=== PATIENT | female | born 1970 | race Two or more races ===

== ENCOUNTER → 2019-08-07 | Emergency (ER) | payer OTHER ==
[~2019-08-07] VITALS: Ht 170.2 cm; Wt 71.7 kg
[~2019-08-07] MED LIST: ALBUTEROL SULF 2.5 MG/0.5ML(0.5%) NEB SOLN NEB STA; IPRATROPIUM BROM 0.5 MG/2.5ML INH SOL NEB ONE; ONDANSETRON HCL 4 MG/2 ML VIAL ONE; cefTRIAXone 1GM/50ML D5W 50 ML IV ONE
[2019-08-07 23:25] LABS: Eosinophils # (auto) 0.3 10 ^3/uL (0-0.8); Hemoglobin 14.3 g/dL (12.2-16.2); Monocytes # (auto) 0.9 10 ^3/uL (0-1.3); Neutrophils % (auto) 70.8 % (37.0-80.0); Nucleated Red Blood Cells % 0.1 %; Red Cell Distribution Width 13.9 % (11.8-14.3); White Blood Cell 14.9 10^3/uL (4.4-10.8)
[2019-08-07 23:27] LABS: Basophils # (auto) 0.1 10 ^3/uL (0-0.2); Basophils % (auto) 0.6 % (0.0-2.0); Eosinophils % (auto) 1.9 % (0.0-7.0); Lymphocytes % (auto) 20.4 % (10.0-50.0); Mean Corpuscular Hemoglobin 25.3 pg (28.0-32.0); Mean Corpuscular Hgb Conc. 33.2 g/dL (32.0-36.0); Mean Corpuscular Volume 76.3 fL (80.0-100.0); Monocytes % (auto) 6.3 % (0.0-12.0); Neutrophils # (auto) 10.5 10 ^3/uL (1.6-8.6); Platelet Count (auto) 330 10^3/uL (140-450); Red Blood Cells 5.63 10^6/uL (4.0-5.20)
[2019-08-07 23:39] LABS: Albumin 3.7 g/dL (3.4-5.0); BUN/Creatinine Ratio 16.7; Calcium 8.9 mg/dL (8.5-10.1); Potassium 3.5 mmol/L (3.5-5.1)
[2019-08-07 23:42] LABS: Bilirubin, Total 0.4 mg/dL (0.2-1.0); Total Protein 7.7 g/dL (6.4-8.2)
[2019-08-08 02:31] LABS: Urine Bacteria MOD /hpf (None Seen); Urine Blood 2+ /uL (Negative); Urine Mucus FEW (None Seen); Urine Specific Gravity 1.027 (1.001-1.035); Urine WBC 5 /hpf (0 - 5)
[2019-08-08 03:00] VITALS: BP 120/69
== END | disposition home or self-care (01) ==
LOC: EDBD 22:13 → ER 22:17
DX: J02.0 Streptococcal pharyngitis (principal); K52.89 Other specified noninfective gastroenteritis and colitis; J45.998 Other asthma; J32.8 Other chronic sinusitis
CPT/HCPCS: 36415; 71045; 80053; 81001; 82728; 83605; 84702; 85025; 87804; 87880; 93005; 96374; J0696; J2405